=== PATIENT | female | born 1970 | race African-American/Black ===

== ENCOUNTER → 2017-04-07 | Day surgery (SDC) | payer OTHER ==
[~2017-04-07] MED LIST: ALBU1.25 NEB; AMOX1TAB61 PO; AZIT250T PO; BENZ100C PO; IV RINGERS,LACTATED 1000ML 1,000 ML IV SCH; LIDOCAINE 1% PF 2 ML VIAL. ID PRN; LIDOCAINE 2% PF Vial for OR 5 ML VIAL. ONE; ONDANSETRON PF 4 MG/2 ML VIAL. IV PRN; PRED50TA PO; PROAIR RESPICL90 MCG IH; PROCHLORPERAZINE 10 MG/2 ML VIAL. IV PRN; PROPOFOL 0 ML IV ONE; fentaNYL PF VIAL 100 MCG/2 ML VIAL IV PRN
--- NOTE | 2017-04-07 10:44 | PDOC1 ---
HISTORY & PHYSICAL H&P Sadie Henson 1970 03/28/2017 03:20 PM 06/26 [email or web address] [facility] [address] [place] [address]. [phone] Patient: Sadie Henson Date of : 1970 Date: 03/28/2017 3:20 PM Visit Type: Office Visit This 46 year old female presents for Abdominal pain. History of Present Illness: 1. Abdominal pain Duration is 4 to 6 weeks. Location is epigastric, midline, RUQ. Denies aggravating factors. Denies relieving factors. Pertinent negatives include blood in stool, change in appetite, constipation, diarrhea, fever, nausea, vomiting, weight gain and weight loss. INTAKE COMMENTS: Intake Comments: Nurse Note: the pt is here today with complaints of RUQ abd pain that radiates to her back. PROBLEM LIST: Problem Description Onset Date Asthma 07/16/2012 PAST MEDICAL/SURGICAL HISTORY (Detailed) Disease/disorder Onset Date Management Date Comments partial hysterectomy Knee surgery Asthma Colonic polyps colonoscopy with biopsy 07/27/2012 Duodenitis 07/10/2012 gastric ulcers Internal hemorrhoids Reactive gastropathy 07/10/2012 EGD with biopsy 07/10/2012 DIAGNOSTICS HISTORY: Test Ordered Interpretation Result completed UPPER GI ENDOSCOPY, BIOPSY 07/09/2012 Imp: Gastritis, (bx). Duodenitits. BX: Reactive gastropathy. 07/10/2012 SMALL BOWEL SERIES 07/09/2012 Imp: Normal small bowel follow through study. millimeter oval shaped calcification projecting along the expected course of the (R) ureter. 07/12/2012 COLONOSCOPY AND BIOPSY 07/16/2012 Imp: polyp, (bx). Grade 1 Internal hemorrhoids. BX: Tubular adenoma. 07/27/2012 Colonoscopy 12/01/2014 normal 12/11/2014 EGD 12/01/2014 abnormal Imp: LA grade A reflux esophagitis, Erosive gastropathy( bx), Normal examined duodenum. BX: Anrtal mucosa with chronic, focally active gastritis with prominent eosinophils and reactive epithelial changes. Immunohistochemical stain for h-pylori performed with appropriate control is negative. 12/11/2014 Test Ordered Ordering Comments Modifier UPPER GI ENDOSCOPY, BIOPSY 07/09/2012 SMALL BOWEL SERIES 07/09/2012 COLONOSCOPY AND BIOPSY 07/16/2012 Colonoscopy 12/01/2014 EGD 12/01/2014 Medications (Active): Started Medication Directions Instruction Stopped albuterol sulfate 2.5 mg/3 mL (0.083 %) Neb Solution inhale 3 milliliter (2.5MG ) by nebulization route 4 times every day Allergies: Ingredient Reaction Medication Name Comment MORPHINE hallucination, itching REVIEW OF SYSTEMS System Neg/Pos Details Constitutional Negative Chills, fever, malaise and weight loss. ENMT Negative Sore throat. Eyes Negative Double vision. Respiratory Negative Dyspnea and wheezing. Cardio Negative Chest pain and irregular heartbeat/palpitations. GI Positive See HPI. GI Negative See HPI. Negative Dysuria and hematuria. Endocrine Negative Cold intolerance and heat intolerance. Psych Negative Anxiety. Integumentary Negative Hives and rash. MS Negative Joint pain. Bakari/Lymph Negative Easy bleeding and easy bruising. Allergic/Immuno Negative Food allergies. VITAL SIGNS Time BP mm/Hg Pulse /min Resp /min Temp F Ht ft Ht in Ht cm Wt lb Wt kg BMI kg/ m2 BSA m2 O2 Sat% 3:19 PM 122/74 85 98.0 5.0 3.50 161.29 208.80 94.710 36.41 98 Time Measured by 3:19 PM An Bonner PHYSICAL EXAM: Exam Findings Details Constitutional Normal Well developed. Eyes Normal Conjunctiva - Right: Normal, Left: Normal. Sclera - Right: Normal, Left: Normal. Nasopharynx Normal Lips/teeth/gums - Normal. Neck Exam Normal Inspection - Normal. Thyroid gland - Normal. Respiratory Normal Inspection - Normal. Auscultation - Normal. Cardiovascular Normal Regular rate and rhythm. No murmurs, gallops, or rubs. Vascular Normal Pulses - Carotids: Normal, Femoral: Normal, Dorsalis pedis: Normal. Abdomen Normal Inspection - Normal. Anterior palpation - No guarding. No abdominal tenderness. No hepatic enlargement. No splenic enlargement. No hernia. No Ascites. Skin Normal Inspection - Normal. Extremity Normal No edema. Psychiatric Normal Oriented to time, place, person, and situation. Appropriate mood and effect. Assessment/Plan # Detail Type Description 1. Assessment Pain of upper abdomen (R10.10). Patient Plan schedule EGD at Schedule abdominal sonogram. If normal then to consider GB ejection fraction later. Plan Orders Further diagnostic evaluations ordered today include(s) Abdomen Ultrasound; Complete and EGD to be performed today. She is to schedule a follow -up visit with Luis Felipe Alexandre MD upon completion of work-up Electronically signed by: Luis Felipe Alexandre MD 03/28/2017 03:37 PM Document generated by: Luis Felipe Alexandre 03/28/2017 03:37 PM Louie Lincoln MD, [facility]; Norman Cardenas MD Internal Medicine; Renee Ely MD, Internal Medicine; Keith Alexandre MD Internal Medicine; Luis Felipe Alexandre MD, Gastroenterology; Dae Schaefer MD, Rheumatology, S. Braulio Panda, Physical Medicine/Rehab J. Claribel HOLLEYN ------ 04/07/17 Patient seen and examined. No change in H&P. LUIS FELIPE ALEXANDRE MD Apr 07, 2017 10:44
[2017-04-07 11:55] VITALS: BP 107/69
== END | disposition home or self-care (01) ==
LOC: ENDOS 10:08
PROVIDERS: ATTEND Internal Medicine Gastroenterology
DX: K92.9 Disease of digestive system, unspecified (principal); J45.909 Unspecified asthma, uncomplicated; F17.200 Nicotine dependence, unspecified, uncomplicated; Z87.39 Personal history of other diseases of the musculoskeletal system and connective tissue; Z90.710 Acquired absence of both cervix and uterus; Z88.6 Allergy status to analgesic agent; Z72.0 Tobacco use
CPT/HCPCS: J2704; J2001

== ENCOUNTER → 2017-04-18 | Outpatient (CLI) | payer OTHER ==
[2017-04-07 11:55] VITALS: BP 107/69
[~2017-04-18] MED LIST changes: -IV RINGERS,LACTATED 1000ML 1,000 ML IV SCH; -LIDOCAINE 1% PF 2 ML VIAL. ID PRN; -LIDOCAINE 2% PF Vial for OR 5 ML VIAL. ONE; -ONDANSETRON PF 4 MG/2 ML VIAL. IV PRN; -PROCHLORPERAZINE 10 MG/2 ML VIAL. IV PRN; -PROPOFOL 0 ML IV ONE; -fentaNYL PF VIAL 100 MCG/2 ML VIAL IV PRN
--- NOTE | 2017-04-18 08:38 | KCIC ---
EXAM: Abdomen sonogram. HISTORY: Pain. TECHNIQUE: Sonographic imaging of the abdomen was performed. COMPARISON: None. FINDINGS: The liver is upper normal in size. There is hepatic steatosis. No focal hepatic lesion is seen. The common bile duct is normal in caliber. The gallbladder is unremarkable. The kidneys are normal in size. No solid or cystic renal lesion is seen. There is no hydronephrosis. The pancreas, aorta and inferior vena cava are partially obscured due to bowel gas. The spleen is normal in size. IMPRESSION: 1. Hepatic steatosis. 2. Limited evaluation of the midline structures due to bowel gas. Electronically signed by: Rebecca Osuna MD (04/18/2017 8:35 AM) [facility]
== END | disposition home or self-care (01) ==
LOC: KCIC US 07:39
PROVIDERS: ATTEND Internal Medicine Gastroenterology
DX: K76.0 Fatty (change of) liver, not elsewhere classified (principal)
CPT/HCPCS: 76700

== ENCOUNTER → 2017-05-22 | Outpatient (CLI) | payer OTHER ==
[2017-04-07 11:55] VITALS: BP 107/69
--- NOTE | 2017-05-22 09:40 | RAD ---
Radionuclide gastric emptying study, 05/22/2017: History: Nausea, vomiting and pain The study was performed utilizing a solid test meal radiolabeled with 2.1 mCi of technetium 99m sulfur colloid. The time to half emptying of the test meal from the patient's stomach was estimated at 100 minutes. A normal T1/2 is 60 minutes +/- 30 minutes. IMPRESSION: Minimally delayed gastric emptying
== END | disposition home or self-care (01) ==
LOC: NM 07:45
PROVIDERS: ATTEND Internal Medicine Gastroenterology
DX: K30 Functional dyspepsia (principal); R11.2 Nausea with vomiting, unspecified
CPT/HCPCS: 78264; A9541

== ENCOUNTER → 2017-05-23 | Outpatient (CLI) | payer OTHER ==
[2017-04-07 11:55] VITALS: BP 107/69
--- NOTE | 2017-05-24 15:47 | SLEEP ---
DATE OF STUDY: 05/23/2017 ATTENDING PHYSICIAN: Halie Galvan MD The patient is 46-year-old who weighs 212 pounds with a BMI of 36 and an [place] score of 19 suggesting severe subjective hypersomnia. Sleep study was performed at [facility]. This was a diagnostic study. During the night study, the patient spent 420 minutes in bed and slept for 367 minutes with a sleep efficiency of 87%. Sleep latency was 2 minutes with a REM latency of 98 minutes. Overall, sleep architecture showed normal stage 1 and stage 2 sleep, normal slow wave and normal REM sleep. During the night study, the patient had 31 obstructive apneas, 6 mixed and no central apneas. There were 36 hypopneas. The patient's apnea-hypopnea index was 12 per hour, supine index 10 per hour and REM index of 48 per hour. EKG monitoring revealed average heart rate of 78 beats per minute. Normal sinus rhythm. No sustained arrhythmias were observed. Review of nocturnal oximetry study revealed a mean oxygen saturation of 96%, the lowest of 85%. Only 2% of time, oxygen saturation remained between 80% and 89%. PLMS were not seen. IMPRESSION: 1. Mild sleep apnea-hypopnea syndrome with worsening during REM sleep. Total AHI 12 per hour with a REM AHI of 48 per hour. 2. No clinically significant nocturnal hypoxia. 3. No clinically significant periodic limb movements in sleep. RECOMMENDATIONS: 1. The patient is clinically symptomatic with severe subjective hypersomnia. I would recommend that patient's sleep apnea should be treated with either oral appliance or a trial of CPAP titration. 2. If patient undergoes CPAP titration, then she should be followed up in 4-6 weeks to assess compliance with CPAP and to document clinical improvement. 3. Weight loss is strongly advised. 4. Avoid MAGNETIZER depressants. 5. Caution regarding driving until patient's hypersomnia is resolved with above recommendations. GAIL GONZALEZ MD DR: REGINA/shane JOB#: [id number] / [id number] [facility] HALIE GALVAN MD
== END | disposition home or self-care (01) ==
LOC: SLPLAB 18:34
PROVIDERS: ATTEND Internal Medicine
DX: G47.33 Obstructive sleep apnea (adult) (pediatric) (principal); R40.0 Somnolence
CPT/HCPCS: 95810